=== PATIENT | female | born 1960 | race Caucasian/White ===

== ENCOUNTER 2017-08-13 00:43 | Emergency (ER) | payer MEDICARE ==
[~2017-08-13] VITALS: Ht 165.1 cm; Wt 92.4 kg
[2017-08-13 02:44] LABS: URINE BILIRUBIN NEGATIVE (Negative); URINE BLOOD NEGATIVE (Negative); URINE CLARITY CLEAR; URINE COLOR YELLOW; URINE GLUCOSE-RANDOM NEGATIVE (Negative); URINE KETONES NEGATIVE (Negative); URINE LEUKOCYTES-REFLEX NEGATIVE (Negative); URINE NITRITE-REFLEX NEGATIVE (Negative); URINE PROTEIN 1+ (Negative); URINE SPECIFIC GRAVITY >= 1.030 (1.005-1.030); URINE UROBILINOGEN 0.2 E.U./dl (0.2-1.0)
[2017-08-13 03:48] VITALS: BP 168/76
== END 2017-08-13 03:48 | disposition home or self-care (01) ==
LOC: M.ERS 00:43
PROVIDERS: Emergency Medicine
DX: R07.81 Pleurodynia (principal)

== ENCOUNTER 2018-11-30 04:33 | Emergency (ER) | payer MEDICARE ==
[~2018-11-30] VITALS: Ht 165.1 cm; Wt 72.6 kg
[2018-11-30 06:32] LABS: SALICYLATE < 2.8 mg/dL (2.8-20.0)
[2018-11-30 06:35] LABS: ACETAMINOPHEN < 2 ug/mL (10-30)
[2018-11-30 07:02] LABS: TROPONIN-I LEVEL 0.06 ng/mL (<0.06)
[2018-11-30 07:07] LABS: HEMATOCRIT 38.9 % (37.0-47.0); HEMOGLOBIN 13.4 gm/dL (12.0-15.0); RBC 4.56 mil/uL (4.20-5.00); WBC 7.9 thou/uL (4.0-11.0)
[2018-11-30 07:08] LABS: ABSOLUTE EOSINOPHILS 0.1 thou/uL (0.0-0.7); ABSOLUTE LYMPHOCYTES 1.4 thou/uL (0.8-5.3); ABSOLUTE MONOCYTES 0.6 thou/uL (0.0-1.2); ABSOLUTE NEUTROPHILS 5.8 thou/uL (1.6-8.1); BASOPHILS 0.6 %; EOSINOPHILS 1.2 %; LYMPHOCYTES 17.6 %; MCH 29.3 pg (26.0-34.0); MCHC 34.4 g/dL (28.0-37.0); MCV 85.3 fL (80.0-100.0); MONOCYTES 7.8 %; MPV 7.6 fl. (7.2-11.1); PLATELET COUNT* 228 thou/uL (150-400); POLYS 72.8 %; RDW-CV 13.4 % (10.5-14.5)
[2018-11-30 07:10] LABS: AMP/METHAMP Negative (Negative); BARBITURATES Negative (Negative); BENZODIAZEPINES Negative (Negative); COCAINE Negative (Negative); METHADONE Negative (Negative); OPIATES Negative (Negative); PCP Negative (Negative); THC Negative (Negative); URINE COLOR YELLOW
[2018-11-30 07:11] LABS: URINE BILIRUBIN NEGATIVE (Negative); URINE BLOOD NEGATIVE (Negative); URINE CLARITY CLEAR; URINE GLUCOSE-RANDOM NEGATIVE (Negative); URINE KETONES TRACE (Negative); URINE LEUKOCYTES-REFLEX NEGATIVE (Negative); URINE NITRITE-REFLEX NEGATIVE (Negative); URINE PROTEIN 1+ (Negative)
[2018-11-30 07:20] LABS: CALCIUM 8.8 mg/dL (8.5-10.1); CREATININE 0.9 mg/dL (0.6-1.3); POTASSIUM 2.8 mmol/L (3.5-5.1); TOTAL BILIRUBIN 0.8 mg/dL (<0.1-1.0)
[2018-11-30 07:21] LABS: ALBUMIN 3.3 g/dL (3.4-5.0); TOTAL PROTEIN 6.6 g/dL (6.4-8.2)
[2018-11-30 07:43] VITALS: BP 199/97
--- NOTE | 2018-11-30 08:22 | NUR ---
AT 0700 PT WAS UP, ASKING SEVERAL QUESTIONS THAT WERE DELUSIONAL AND ASKING TO TAKE CARE OF HER NEEDS (BRUSH TEETH, WASH FACE) THAT MADE SENSE AND TOOK ORGANIZED THINKING. PT WAS INTERESTED IN ALL ASPECTS OF HER ROOM. AT THIS TIME PT IS LAYING IN BED WATCHING TV. PT COMPLAINED OF HER IV LINE BUT REFUSED TO DRINK THE POTASSIUM IN RETURN FOR STOPPING THE IV POTASSIUM.
--- NOTE | 2018-11-30 09:29 | NUR ---
BREAKFAST EATEN, PT WATCHING TV
--- NOTE | 2018-11-30 09:29 | NUR ---
HAVE TRIED KEEPING PT ON MONITOR BUT SHE MOVES AROUND TOO MUCH AND TOOK HER STICKERS OFF
--- NOTE | 2018-11-30 10:08 | EKG ---
[place] [address] ELECTROCARDIOGRAM REPORT Name: ALE MANCUSO Room: [facility]#: [id number] Admission: 11/30/18 Attend Phys: Discharge: Date of : 56 Report #: [id number] THIS REPORT FOR: //name// [facility] ED Test Date: 2018-11-30 Test Time: 01:44:08 Pat Name: ALE MANCUSO Department: Room: Gender: F Director Broadcast: : 1960 Requested By: Kath Valdez Order Number: [id number] Reading MD: Dariel Lind Measurements Intervals [place] Rate: 77 P: 37 NE: 163 QRS: -10 QRSD: 102 T: 53 QT: 404 QTc: 458 Interpretive Statements Sinus rhythm Probable left atrial enlargement Left ventricular hypertrophy Anterior ST elevation, probably due to LVH Baseline wander in lead(s) V6 No previous ECG available for comparison Electronically Signed On 11-30-2018 10:08:48 CDT by Dariel Lind [email or web address] <ELECTRONICALLY SIGNED> By: Dariel Lind MD, [facility] 11/30/18 1008 0144 0144 Dariel Lind MD, FACC /EPI
[2018-11-30] MEDS ORDERED: HYDROCHLOROTHIA25 M2 PO (13:42)
--- NOTE | 2018-11-30 15:40 | NUR ---
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
--- NOTE | 2018-11-30 15:41 | NUR ---
PT HAS BEEN EVALUATED BY [facility]'S DIGITAL MEDIA COORDINATOR FOR HER TROP BEING ABNORMAL DR. ZAVALETA SAW AND ASSESSED PT AND STATED SHE DID NOT NEED TO BE ADMITTED TO THE HOSPITAL FOR CARDIO PROBLEMS AND WAS ABLE BE EVALUATED
--- NOTE | 2018-11-30 18:00 | NUR ---
ASSUMED PT CARE
--- NOTE | 2018-11-30 19:00 | NUR ---
PT AWAKE AND COOPERATIVE, REQUESTING ICE WATER-PROVIDED, PT ALSO ASKING TO ATTEMPT A PHONE CALL TO HOME, PT UNABLE TO COMPLETE CALL, WENT TO [employer], PT RETURNED TO ROOM WITHOUT INCIDENT. 1:[address] WILL CONTINUE TO MONITOR.
--- NOTE | 2018-11-30 19:30 | NUR ---
PTS CLOTHES AND CELL PHONE PUT IN CABINET. PT IS A FLIGHT RISK CN AND HS NOTIFIED NO SITTER AVAILABLE.
--- NOTE | 2018-11-30 20:00 | NUR ---
PT RESTING, WATCHING TV, DENIES NEEDING ANYTHING AT THIS TIME. 1:[address], NAD NOTED, WILL CONTINUE TO MONITOR.
--- NOTE | 2018-11-30 20:10 | NUR ---
PT IS RESTING QUIETLY IN BED WITH EYES OPEN.
[2018-11-30 22:43] LABS: ABSOLUTE EOSINOPHILS 0.2 thou/uL (0.0-0.7); ABSOLUTE LYMPHOCYTES 1.6 thou/uL (0.8-5.3); ABSOLUTE MONOCYTES 0.6 thou/uL (0.0-1.2); ABSOLUTE NEUTROPHILS 6.1 thou/uL (1.6-8.1); BASOPHILS 0.3 %; EOSINOPHILS 2.2 %; HEMATOCRIT 42.9 % (37.0-47.0); HEMOGLOBIN 14.8 gm/dL (12.0-15.0); LYMPHOCYTES 19.1 %; MCH 29.5 pg (26.0-34.0); MCHC 34.6 g/dL (28.0-37.0); MCV 85.3 fL (80.0-100.0); MONOCYTES 7.1 %; MPV 7.6 fl. (7.2-11.1); NUCLEATED RBCS 0 /100WBC; PLATELET COUNT* 229 thou/uL (150-400); POLYS 71.3 %; RBC 5.03 mil/uL (4.20-5.00); RDW-CV 13.7 % (10.5-14.5); WBC 8.6 thou/uL (4.0-11.0)
[2018-11-30 22:48] LABS: CALCIUM 8.9 mg/dL (8.5-10.1); CREATININE 0.7 mg/dL (0.6-1.3)
[2018-11-30 22:58] LABS: ALBUMIN 3.3 g/dL (3.4-5.0); TOTAL BILIRUBIN 0.6 mg/dL (<0.1-1.0); TROPONIN-I LEVEL 0.07 ng/mL (<0.06)
[2018-11-30 23:01] LABS: POTASSIUM 2.9 mmol/L (3.5-5.1)
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
[2018-12-01 19:17] VITALS: BP 135/76
== END 2018-12-01 19:10 ==
LOC: M.ERS 04:33 → M.TBA-ER 13:25 → M.ERS 13:25
PROVIDERS: Emergency Medicine
DX: F23 Brief psychotic disorder (principal); E87.6 Hypokalemia; I10 Essential (primary) hypertension; E11.9 Type 2 diabetes mellitus without complications; F17.200 Nicotine dependence, unspecified, uncomplicated

== ENCOUNTER 2019-10-03 20:16 | Emergency (ER) | payer MEDICARE ==
[~2019-10-03] VITALS: Ht 165.1 cm; Wt 68.0 kg
[~2019-10-03 20:16] MED LIST: HYDROCHLOROTHIA25 M2 PO
[2019-10-03] MEDS ORDERED: TYLENOL WITH CO1 TA1 PO (22:25)
[2019-10-03 22:58] VITALS: BP 177/78
== END 2019-10-03 23:02 | disposition home or self-care (01) ==
LOC: M.ERS 20:16
DX: S80.12XA Contusion of left lower leg, initial encounter (principal); Y04.0XXA Assault by unarmed brawl or fight, initial encounter; Y93.89 Activity, other specified; Y92.89 Other specified places as the place of occurrence of the external cause; Y99.8 Other external cause status